=== PATIENT | male | born 1990 ===

== ENCOUNTER 2025-01-27 10:02 | Outpatient (AMB) | payer OTHER, SELFPAY ==
--- NOTE | 2025-01-27 10:07 | A.OFFPC_ITS ---
Vital Signs 01/27/25 10:18 Height 5 ft 9 in Weight 215 lb 6 oz BMI 31.8 BP 118/70 Blood Pressure Location Lt brachial Position Sitting Respiration 14 Pulse 70 Pulse Source Pulse Oximeter Temp 98.3 F Temp Source Oral Pulse Oximetry (%) 98 Oxygen Delivery Method Room Air Intake Visit Reasons: [employer]- PE request Intake Note: patient is scheduled to establish care with pcp Allergies No Known Allergies Allergy (Verified 01/27/25 10:16) Medication List - Last Reconciled 01/27/25 by Keven Norman MD No Known Home Meds Tobacco use date assessed: 01/27/25 Dental Screening Dental Screen Date: 01/27/25 Did you have a dental visit in the last 12 months?: No Did you have a dental problem in the last 6 months where you did not have access to dental care?: No Was dental information given to patient?: Yes HPI [employer]ER- PE request HPI Details New Patient? ?? Prior PCP:? No Recent PCP Last office visit/CPE:? > 1 yr Acute issue(s):? Est Care ?? PMHx:? Hx Obesity SurgHx:? Appendectomy FHx:?Mom: Breast CA. Dad: DM. 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 Nonsmoker, EtOH Special occassions. 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 1. Little interest or pleasure in doing things: not at all 2. Feeling down, depressed, or hopeless: not at all 3. Trouble falling or staying asleep, or sleeping too much: not at all 4. Feeling tired or having little energy: not at all 5. Poor appetite or overeating: not at all 6. Feeling bad about yourself - or that you are a failure or have let yourself or your family down: not at all 7. Trouble concentrating on things, such as reading the newspaper or watching television: not at all 8. Moving or speaking so slowly that other people could have noticed. Or the opposite - being so fidgety or restless that you have been moving around a lot more than usual: not at all 9. Thoughts that you would be better off or of hurting yourself in some way: not at all Total score: 0 Depression Screening Interpretation: Negative Depression Screening Done: Yes 92955 - PHQ-9 Billing: Yes Source: Developed by Drs. Andrew Zurita, Teetee Norton, Brooks Silver and colleagues, with an educational janna from [employer]. Thrive Questionnaire I am a: Patient What is your living situation today?: I have a steady place to live Within the past 12 months, did the food you bought not last and you didn't have the money to get more?: Never true Within the past 12 months, did you worry whether your food would run out before you got money to buy more?: Never true Do you have trouble paying for medicines?: No Do you have trouble getting transportation to medical appointments?: No Do you have trouble paying your heating and electricity bill?: No Do you have trouble taking care of your child, family member or friend?: No Do you have trouble with day-to-day activities such as bathing, preparing meals, shopping, managing finances, etc.?: No Are you currently unemployed and looking for a job?: No Are you interested in more education?: No Please select the resources that you would like help with: None Currently or been in a relationship where the following occur: No concerns reported THRIVE Score: 0 AUDIT C Alcohol Use Questionnaire (AUDIT-C) 1. How often do you have a drink containing alcohol?: Never Total Score: 0 ELINA-7 AMB Questionnaire ELINA-7 Date ELINA - 7 assessed: 01/27/25 Feeling nervous, anxious, or on edge: 0 = Not at all Not being able to stop or control worryin = Not at all Worrying too much about different things: 0 = Not at all Trouble relaxin = Not at all Being so restless that it is hard to sit still: 0 = Not at all Becoming easily annoyed or irritable: 0 = Not at all Feeling afraid as if something awful might happen: 0 = Not at all Total ELINA-7 score (0-4 normal; 5-9 mild; 10-14 moderate; 15-21 severe): 0 Source: Developed by Drs. Andrew Zurita, Teetee Norton, Brooks Silver and colleagues, with an educational janna from [employer]. ELINA-7 Assessment Billing ELINA-7 Assessment Tool: ELINA-7 Assessment 79823 Review of Systems Const Denies chills, Denies fatigue, Denies fever(s), Denies headache(s) and Denies weakness Eyes Denies change in vision ENT Denies dizziness, Denies headache(s), Denies hearing loss, Denies nasal congestion, Denies sinus pain, Denies sinus pressure and Denies sore throat Card Denies chest pain, Denies lightheadedness, Denies dyspnea and Denies other (palpitations) Resp Denies cough, Denies dyspnea and Denies wheezing GI Denies abdominal pain, Denies melena, Denies hematochezia, Denies change in bowel habits, Denies dyspepsia and Denies nausea Denies hematuria and Denies dysuria Musc Denies abnormal gait, Denies myalgias, Denies arthralgias, Denies numbness and Denies tingling Skin/Breast Denies rash, Denies unusual bruising and Denies wounds Neuro Denies abnormal gait, Denies dizziness, Denies headache(s), Denies memory loss, Denies numbness, Denies Sensory deficit (Neuro), Denies tingling and Denies weakness Psych Denies anxiety, Denies depression and Denies memory loss Endo Denies cold intolerance, Denies fatigue, Denies heat intolerance, Denies polyd ipsia and Denies polyuria Onofre/Lymph Denies easy bleeding and Denies easy bruising Aller/Immun Denies wheezing Physical exam (Primary Care) Vital Signs: Last Vital Signs Temp 98.3 F 01/27/25 10:18 Pulse 70 01/27/25 10:18 Resp 14 01/27/25 10:18 BP 118/70 01/27/25 10:18 Pulse Ox 98 01/27/25 10:18 Oxygen Delivery Method Room Air 01/27/25 10:18 BMI result Body Mass Index 31.8 Tobacco/Smoking Status: Tobacco use Status Tobacco use date assessed 01/27/25 01/27/25 10:22 Patient Tobacco Use Status Never used Tobacco 01/27/25 10:22 e-Cigarette/Vaping Use Never Used 01/27/25 10:22 PHQ-9: PHQ-9 Score PHQ-9: Total score 0 01/27/25 10:36 Depression Screening Interpretation: Negative Currently or been in a relationship where the following occur: No concerns reported Const General: no acute distress, well developed, alert and awake Nutritional Appearance: well nourished Orientation/consciousness: patient oriented x3 HENMT Head: Yes normocephalic and Yes atraumatic Ears: hearing grossly normal bilaterally and TM's normal bilaterally General nose exam: Normal external nose present and Normal nares present Mouth: Normal oral and palatal mucosa present and moist mucous membranes Teeth and gingiva: dentition normal Throat: Yes posterior oropharynx normal Eyes General: appearance normal, both eyes and all related structures Pupils: Equal, round and reactive pupils present and Pupil accommodation reflex normal EOM: EOMs intact bilaterally Neck Neck: Yes normal visual inspection, Yes no lymphadenopathy and Yes trachea midline Thyroid: Thyroid normal Carotids: no bruits Lymphatic: no lymphadenopathy noted Chest Chest palpation & inspection: normal inspection of the chest Resp Effort & Inspection: normal respiratory effort Auscultation: clear to auscultation bilaterally Cardio Rate: regular rate Rhythm: regular rhythm Heart sounds: S1 normal heart sound present, S2 normal heart sound present, no gallops, no murmurs and no rubs Bruits: no abdominal aortic bruits and no carotid bruits GI Palpation (GI): No Abdominal aortic bruit present, Soft to palpation, nontender, No hepatosplenomegaly present and No Rebound tenderness present Auscultation: normal bowel sounds General: Yes no CVA tenderness Back/Spine/Pelvis Back: no CVA tenderness Cervical Spine: cervical ROM normal and No Cervical spine tenderness Thoracic/Lumbar Spine: thoraco-lumbar ROM normal, No pain with thoraco-lumbar ROM, No thoracic spinal tenderness and No lumbar spinal tenderness Skin Lesions: no lesions Rashes: no rashes Trauma: no lacerations or abrasions Wounds: no wounds Nails: normal Neuro General: patient oriented x3 Cranial nerves: Yes Equal, round and reactive pupils present Cognition (Neuro): normal cognition Gait exam (Neuro): Normal gait present Motor exam (neuro): 5/5 motor strength present throughout Sensory Exam: No Sensory deficit (Neuro) Deep tendon reflexes (DTR's): Right patellar reflex intensity grade: 2+ and Left patellar reflex intensity grade: 2+ Extrem General: Yes normal to inspection and No edema Psych Appearance: grossly normal Affect: normal affect Attitude: cooperative Thought process: Normal thought process present Coding Level of Care Code New Pt Level 3 (84837) New Pt Prev Care 18-39yr(81118 Diagnoses Adult general medical exam Z00.00 Family history of diabetes mellitus Z83.3 Bruising T14.8XXA Additional Codes ELINA-7 Assessment Billing - ELINA-7 Assessment Tool: ELINA-7 Assessment 14713 ([id number]) PHQ-9 - 30110 - PHQ-9 Billing: Yes ([id number]) Assessment & Plan Assessment & Plan (1) Adult general medical exam: Code(s): Z00.00 - Encounter for general adult medical examination without abnormal findings Category: Medical Plan: 34-year-old male presents as new patient for complete physical exam Encouraged healthy diet with active lifestyle and plenty of exercise (2) Family history of diabetes mellitus: Code(s): Z83.3 - Family history of diabetes mellitus Category: Medical Plan: Family history of diabetes and patient has personal history of morbid obesity though now quite muscular Will check A1c and fasting blood sugar isn't with labs (3) Bruising: Code(s): T14.8XXA - Other injury of unspecified body region, initial encounter Category: Medical Plan: Patient notes frequent bruises. 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 No expanding bruises, nosebleeds or bleeding gums after brushing teeth. No blood in stool. Reassured patient Will check CBC however. Orders: Orders Comprehensive [place]. Panel Fast Today Z00.00 - Encounter for general adult medical examination without abnormal findings UA CC w/rflx Micro + Cult Today Z00.00 - Encounter for general adult medical examination without abnormal findings Lipid Panel Today Z00.00 - Encounter for general adult medical examination without abnormal findings CT NG by PCR Vag/Cerv Today Z11.3 - Encounter for screening for infections with a predominantly sexual mode of transmission HIV Ab/Ag Today Z11.3 - Encounter for screening for infections with a predominantly sexual mode of transmission Hepatitis B,C Profile Today Z11.3 - Encounter for screening for infections with a predominantly sexual mode of transmission Microalbumin, Random (w Creat) Today I10 - Essential (primary) hypertension TSH reflex Free T4 Today Z00.00 - Encounter for general adult medical examination without abnormal findings Syphilis Screen Today Z11.3 - Encounter for screening for infections with a predominantly sexual mode of transmission Hemoglobin A1c Today R73.01 - Impaired fasting glucose, Z83.3 - Family history of diabetes mellitus Complete Blood Count Auto Diff Today T14.8XXA - Other injury of unspecified body region, initial encounter, Z00.00 - Encounter for general adult medical examination without abnormal findings
[2025-01-27 10:18] VITALS: BP 118/70; PULSE 70; RESP 14; TEMP 36.8; O2SAT 98; BMI 31.8
--- OUTSIDE RECORDS SUMMARY | 2025-01-27 10:41 | XMS_ITS | Clinical Summary ---
Author Organization [facility] Address [address] [place] [address] Care Team Providers Care Harpsichord Maker Name Role Phone Zonia Umaña MD Primary Care Provider Allergies Active Allergy Reactions Criticality Noted Date Comments Acetaminophen-Codeine 12/18/2016 Nausea and vomiting Medications No known medications Active Problems Problem Noted Date Diagnosed Date Elevated blood pressure read ing without diagnosis of hypertension 04/29/2019 Duodenitis 11/23/2012 Hiatal hernia 11/23/2012 Insomnia 04/21/2012 External hemorrhoids 10/20/2010 Overview (08/13/2024): IMO update Morbid obesity with BMI of 4 5.0-49.9, adult ([facility] V24, [facility] V28) Immunizations Name Administration Dates Next Due Tdap Tetanus diptheria acell ular pertussis (Boostrix; Adacel) 7yo and older 02/04/2017 Surgical History Surgery Date Site/Laterality Comments ESOPHAGOGASTRODUODENOSCOPY 2012 PROCEDURE: [place] ESOPHAGOGASTRODUODENOSCOPY TRANSORAL DIAGNOSTIC; COMMENT: normal on PPI rx Medical History Medical History Date Comments Hemorrhoids DX:Hemorrhoids Insomnia DX:Insomnia Family History Medical History Relation Name Comments Other: Other Mother breast cancer s urvivor Colon cancer Neg Hx Relation Name Status Comments Brother 1 Alive mentally and ph ysically disable Brother 2 Alive heathy Brother 3 Alive healthy Brother 4 Alive healthy Father Alive [place]; HTN Maternal Grandfather Alive unknown Maternal Grandmother ca Mother Alive breast ca Paternal Grandfather CAD Paternal Grandmother Alive healthy Social History Tobacco Use Types Packs/Day Years Used Date Smoking Tobacco: Never Smokeless Tobacco: Never Alcohol Use Standard Drinks/Week Comments Not Currently 0 (1 standard drink = 0.6 oz pur e alcohol) Sex and Gender Information Value Date Recorded Sex Assigned at Not on file Legal Sex Male 1:10 AM EST Gender Identity Not on file Sexual Orientation Not on file Obstetrics History Last Filed Vital Signs Vital Sign Reading Time Taken Comments Blood Pressure 121/72 12/02/2023 9:19 AM EDT Pulse - - Temperature - - Respiratory Rate - - Oxygen Saturation - - Inhaled Oxygen Concentration - - Weight 97.5 kg (215 lb) 12/02/2023 9:19 AM EDT Height 175.3 cm (5' 9 ) 12/02/2023 9:19 AM EDT Body Mass Index 31.75 12/02/2023 9:19 AM EDT Plan of Treatment Health Maintenance Due Date Last Done Comments Hepatitis B Vaccines (1 of 3 - 19+ 3-dose series) 2009 Depression Screening 02/17/2024 HIV Screening 02/17/2024 Hepatitis C Screening 02/17/2024 Social Influencers of Health Screening 02/17/2024 COVID-19 Vaccine (1 - 2023-2 5 season) 2024 Influenza Vaccine (#1) 2025 DTaP,Tdap,and Td Vaccines (2 - Td or Tdap) 02/04/2027 02/04/2017 Cholesterol Screening (Lipid Panel) 12/02/2028 12/03/2023, 12/03/2023 HIB Vaccines Aged Out No longer eligi ble based on patient's age to complete this topic HPV Vaccines Aged Out No longer eligi ble based on patient's age to complete this topic Hepatitis A Vaccines Aged Out No long er eligible based on patient's age to complete this topic IPV Vaccines Aged Out No longer eligi ble based on patient's age to complete this topic MMR Vaccines Aged Out No longer eligi ble based on patient's age to complete this topic Meningococcal ACWY Vaccine Aged Out N o longer eligible based on patient's age to complete this topic Meningococcal B Vaccine Aged Out No l onger eligible based on patient's age to complete this topic Pneumococcal Vaccine: Pediatrics (0 to 5 Years) and At-Risk Patients (6 to 49 Years) Aged Out No longer eligible b ased on patient's age to complete this topic RSV Immunization Patients Under 20 months Aged Out No longer eligible b ased on patient's age to complete this topic Varicella Vaccines Aged Out No longer eligible based on patient's age to complete this topic Procedures Procedure Name Priority Date/Time Associated Diagnosis Comments LIPID PANEL Routine 12/03/2023 from Last 3 Months or Most Recently Relevant to Health Maintenance Results * (ABNORMAL) Lipid panel (12/03/2023) LDL/HDL Ratio 4 0 - 4 Triglycerides 60 0 - 150 mg/dL Cholesterol 209(A) 0 - 200 mg/dL HDL 59 >=40 mg/dL LDL Cholesterol 138(A) 0 - 100 mg/dL Blood Venous blood specimen / Unknown Historical Provider LAB BLOOD ORDERABLES Giuliana l Result from Last 3 Months or Most Recently Relevant to Health Maintenance Care Teams Harpsichord Maker Relationship Specialty Start Date End Date Zonia Umaña MD PCP - General 08/22/23
== END 2025-01-27 10:57 | disposition home or self-care (01) ==
LOC: HO.HMCFM 10:03
PROVIDERS: PCP Family Medicine; Visit Provider Family Medicine
DX: Z00.00 Encounter for general adult medical examination without abnormal findings (principal); T14.8XXA Other injury of unspecified body region, initial encounter; Z83.3 Family history of diabetes mellitus

== ENCOUNTER → 2025-01-27 10:02 | Outpatient (BNVA) | payer OTHER, SELFPAY | PROVIDERS: PCP Family Medicine; Visit Provider Family Medicine | DX: Z00.00 Encounter for general adult medical examination without abnormal findings (principal); I10 Essential (primary) hypertension; Z83.3 Family history of diabetes mellitus | CPT/HCPCS: 96127 ==

== ENCOUNTER 2025-01-31 08:49 | Outpatient (REF) | payer OTHER, SELFPAY ==
--- OUTSIDE RECORDS SUMMARY | 2025-01-31 08:57 | XMS_ITS | Clinical Summary ---
Author Organization [facility] Address [address] [place] [address] Care Team Providers Care Job Boss Name Role Phone Zonia Umaña MD Primary [...] obesity with BMI of 4 5.0-49.9, adult ([facility] V24, [facility] V28) Immunizations Name Administration Dates Next Due Tdap Tetanus diptheria acell ular pertussis (Boostrix; Adacel) 7yo and older 02/04/2017 Surgical History Surgery Date Site/Laterality Comments ESOPHAGOGASTRODUODENOSCOPY 2012 PROCEDURE: [place] ESOPHAGOGASTRODUODENOSCOPY TRANSORAL DIAGNOSTIC; COMMENT: normal on PPI rx Medical History Medical History Date Comments Hemorrhoids DX:Hemorrhoids Insomnia DX:Insomnia Family History Medical History Relation Name Comments Other: Other Mother breast cancer s urvivor Colon cancer Neg Hx Relation Name Status Comments Brother 1 Alive mentally and ph ysically disable Brother 2 Alive heathy Brother 3 Alive healthy Brother 4 Alive healthy Father Alive [place]; HTN Maternal Grandfather Alive unknown Maternal Grandmother [...] Recently Relevant to Health Maintenance Care Teams Job Boss Relationship Specialty Start Date End Date Zonia Umaña MD PCP - General 08/22/23
[2025-01-31 11:42] LABS: MANUAL DIFF FLAG NO
[2025-01-31 11:55] LABS: Hematocrit 46.0 % (42.0-52.0); Hemoglobin 15.1 g/dl (14.0-18.0); Imm Gran Abs Auto 0.01 X10*3/uL (0.00-0.03); Imm Gran Pct Auto 0.2 % (0.0-0.4); Lymphocytes Absolute Auto 1.8 X10*3/uL (1.2-4.9); Mean Corpuscular HGB Conc 32.8 g/dl (31.0-36.0); Mean Corpuscular Hemoglobin 29.8 pg (27.0-33.0); Mean Corpuscular Volume 90.9 fL (80.0-98.0); NRBC Abs Auto 0.000 X10*3/uL (0.0-0.012); NRBC Pct Auto 0.0 /100WBC (0.0-0.2); Platelet Count 178 X10*3/uL (160-400); Red Blood Count 5.06 X10*6/uL (4.60-5.80); White Blood Count 4.2 X10*3/uL (4.8-10.8)
[2025-01-31 12:26] LABS: Alanine Aminotransferase 21 U/L (0-40); Albumin Level 4.6 g/dL (3.5-5.0); Alkaline Phosphatase 42 U/L (39-117); Anion Gap 9 (12-20); Aspartate Amino Transferase 29 U/L (5-37); Blood Urea Nitrogen 18 mg/dL (9-16); Calcium 9.4 mg/dL (8.4-10.2); Carbon Dioxide 29 mmol/L (22-29); Chloride 105 mmol/L (96-108); Cholesterol 218 mg/dL (<200); Estimated Glomerular Filt Rate > 60; HDL Cholesterol 51 mg/dL (>40); Potassium 4.3 mmol/L (3.3-5.1); Sodium 139 mmol/L (135-145); Total Protein 6.7 g/dL (6.5-8.0); Triglycerides 77 mg/dL (<150)
[2025-01-31 12:36] LABS: HBS Num1 0.20 mIU/mL (0-7.99); HBc Num1 0.04 S/CO (0.00-0.79); HBsAGNum1 0.36 S/CO (0.00-0.99); HIV Num 1 0.09 S/CO (0.00-0.99); Hepatitis B Surface Antigen Negative (Negative); ~HepC Num1 0.08 S/CO (0.00-0.79); ~Hepatitis B Surface Antibody NONREACTIVE (Nonreactive); ~Hepatitis C Antibody Nonreactive (Nonreactive)
[2025-01-31 12:37] LABS: Syphilis Screen Nonreactive (Nonreactive)
[2025-01-31 12:41] LABS: Hemoglobin A1C 120.2968 umol/L; Total Hemoglobin (HGBA1C) 3969.2528 umol/L
[2025-01-31 15:14] LABS: Appearance Urine Clear; Glucose Urine UA Negative (Negative); PH 7.5 (5.0-9.0); Specific Gravity - Urine 1.010 (1.005-1.025)
[2025-02-01 10:01] LABS: CT PCR Urine NOT DETECTED (Not Detect.); NG PCR Urine NOT DETECTED (Not Detect.)
== END 2025-01-31 08:50 | disposition home or self-care (01) ==
LOC: HO.WFDLDS 08:49
PROVIDERS: Visit Provider Family Medicine
DX: Z00.00 Encounter for general adult medical examination without abnormal findings (principal); Z11.3 Encounter for screening for infections with a predominantly sexual mode of transmission; T14.8XXA Other injury of unspecified body region, initial encounter; I10 Essential (primary) hypertension; R73.01 Impaired fasting glucose; Z83.3 Family history of diabetes mellitus
CPT/HCPCS: 36415; 80053; 80061; 81003; 82043; 82570; 83036; 84443; 85025; 86704; 86706; 86780; 86803; 87340; 87389; 87491; 87591

== ENCOUNTER → 2025-02-18 15:05 | Outpatient (AMB) | payer OTHER, SELFPAY ==
--- NOTE | 2025-02-18 15:01 | A.OFFPC_ITS ---
Intake Visit Reasons: f/u CPE-labs via telemedicine Intake Note: patient is scheduled for lab review. Allergies No Known Allergies Allergy (Verified 02/18/25 15:02) Medication List - Last Reconciled 02/18/25 by Keven Norman MD No Known Home Meds Tobacco use date assessed: 01/27/25 Dental Screening Dental Screen Date: 01/27/25 HPI f/u CPE-labs via telemedicine HPI Details 34 y/o male presents to f/u CPE-labs via telemedicine. Labs drawn 01/31/25. Reviewed labs with pt. Triglycerides 77. TC 218. LDL 152. HDL 51. 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 Andrew Zurita, Teetee Norton, Brooks Silver and colleagues, with an educational janna from [employer] Review of Systems Const Denies chills, Denies fatigue, Denies fever(s), Denies headache(s) and Denies weakness ENT Denies dizziness and Denies headache(s) Card Denies dyspnea Resp Denies cough, Denies dyspnea, Denies wheezing and Denies other (shortness of breath) Musc Denies numbness and Denies tingling Neuro Denies dizziness, Denies headache(s), Denies numbness, Denies tingling and Denies weakness Psych Denies anxiety and Denies depression Endo Denies fatigue Aller/Immun Denies wheezing Physical exam (Primary Care) Tobacco/Smoking Status: Tobacco use Status Tobacco use date assessed 01/27/25 02/18/25 15:06 Patient Tobacco Use Status Never used Tobacco 02/18/25 15:06 e-Cigarette/Vaping Use Never Used 02/18/25 15:06 Telehealth Telehealth Telehealth Platform: Telephone Location of provider rendering services: practice address Location of patient: address on file Patient Identification confirmed using: Name, : Yes Telehealth method: voice only Patient verbally consented to treatment: Yes Patient verbally consented to billing insurance company: Yes Patient informed of any privacy concerns related to visit: Yes Minutes spent on Phone/Video with Pt.: 9 Coding Level of Care Code Tele Est Pt Level 2 (55351) Diagnoses Hypercholesterolemia E78.00 Assessment & Plan Assessment & Plan (1) Hypercholesterolemia: Code(s): E78.00 - Pure hypercholesterolemia, unspecified Category: Medical Plan: LDL cholesterol is too high. Patient says he eats lots of red meat. 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 Encouraged him to work on a diet lower in saturated fats and cholesterol Will recheck lipids prior to next visit and discuss. We did discuss that if lipids are still significantly high we should consider medication. Orders: Orders Lipid Panel Today E78.00 - Pure hypercholesterolemia, unspecified, Z00.00 - Encounter for general adult medical examination without abnormal findings Comprehensive [place]. Panel Fast Today E78.00 - Pure hypercholesterolemia, unspecified, Z00.00 - Encounter for general adult medical examination without abnormal findings Complete Blood Count Auto Diff Today Z00.00 - Encounter for general adult medical examination without abnormal findings
--- OUTSIDE RECORDS SUMMARY | 2025-02-18 15:07 | XMS_ITS | Clinical Summary ---
Author Organization [facility] Address [address] [place] [address] Care Team Providers Care Hawk Missile System Crewmember Name Role Phone Zonia Umaña MD Primary [...] obesity with BMI of 4 5.0-49.9, adult ([facility] V24, [facility] V28) Immunizations Name Administration Dates Next Due Tdap Tetanus diptheria acell ular pertussis (Boostrix; Adacel) 7yo and older 02/04/2017 Surgical History Surgery Date Site/Laterality Comments ESOPHAGOGASTRODUODENOSCOPY 2012 PROCEDURE: [place] ESOPHAGOGASTRODUODENOSCOPY TRANSORAL DIAGNOSTIC; COMMENT: normal on PPI rx Medical History Medical History Date Comments Hemorrhoids DX:Hemorrhoids Insomnia DX:Insomnia Family History Medical History Relation Name Comments Other: Other Mother breast cancer s urvivor Colon cancer Neg Hx Relation Name Status Comments Brother 1 Alive mentally and ph ysically disable Brother 2 Alive heathy Brother 3 Alive healthy Brother 4 Alive healthy Father Alive [place]; HTN Maternal Grandfather Alive unknown Maternal Grandmother [...] of 3 - 19+ 3-dose series) 2009 HIV Screening 02/17/2024 Hepatitis C Screening 02/17/2024 Social Influencers of Health Screening 02/17/2024 COVID-19 Vaccine (1 - 2023-2 5 season) 2024 Depression Screening 07/21/2024 Influenza Vaccine (#1) 2025 DTaP,Tdap,and Td Vaccines [...] Recently Relevant to Health Maintenance Care Teams Hawk Missile System Crewmember Relationship Specialty Start Date End Date Zonia Umaña MD PCP - General 08/22/23
== END ==
LOC: HO.HMCFM 15:05
PROVIDERS: PCP Family Medicine; Visit Provider Family Medicine
DX: E78.00 Pure hypercholesterolemia, unspecified (principal)